=== PATIENT | female | born 1995 | race Caucasian/White ===

== ENCOUNTER 2017-04-04 17:22 | Emergency (ER) | payer OTHER ==
[~2017-04-04] VITALS: Ht 157.5 cm; Wt 65.2 kg
[2017-04-04 17:30] VITALS: Ht 157.5 cm; Wt 65.2 kg
[2017-04-04 18:04] LABS: URINE APPEARANCE CLEAR (CLEAR); URINE BILIRUBIN NEG (NEG); URINE COLOR DK YELLOW; URINE EPITHELIAL CELL AUTO >30 /lpf (0-5); URINE NITRITE NEG (NEG); URINE PH 5.5 (4.5-7.5); UROBILINOGEN NEG (NEG); ZZUR CULT IF INDIC CLEAN CATCH NO
--- NOTE | 2017-04-04 18:06 | EMERGENCY ROOM VISIT NOTE ---
History Report prepared by Cathy: Stan Alexis Under the Supervision of: Erin ChadwickO. First contact with patient: 17:32 Chief Complaint: PELVIC PAIN Stated Complaint: SEVERE ABDOMINAL/PELVIC PAIN, CRAMPING History of Present Illness The patient is a 22 year old female who presents to the Emergency Room with complaints of lower abdominal pain and pelvic pain starting yesterday morning after holding her urine in for too long. She states that yesterday she had to hold her urine in for a drug test for [employer]. She states that afterwards when she was able to urinate she has been having cramping abdominal pain, though she denies any burning with urination. The patient additionally is complaining of lower back pain. She states that her urine has been darker than normal. The patient additionally states that she is having some vaginal bleeding, however she is not due for her menstrual period. She states that there is no chance of since she has an IUD. She denies any recent intercourse, and she denies any gynecological problems in the past. She states that she occasionally has some spotting, however this is heavier than normal. The patient additionally states that she has been having chills recently and is a little nauseous. She notes that she has never had a UTI in the past. Pt denies headache , change in vision, fevers, chest pain, shortness of breath, vomiting, diarrhea , and melena. Source of History: patient Onset: yesterday Position: abdomen, pelvis Quality: cramping Timing: constant Associated Symptoms: + chills, + nausea Review of Systems See HPI for pertinent positives & negatives. A total of 10 systems reviewed and were otherwise negative. Past Medical & Surgical Social History Problems: (1) IUD (intrauterine device) in place Family History Patient reports no known family medical history. Social History Smoking Status: Never Smoker Housing Status: lives with roommate Occupation Status: [employer] student Current/Historical Medications Scheduled Ibuprofen Tab (Advil), 400-600 MG PO Q6H Allergies Coded Allergies: No Known Allergies (Unverified , 04/04/17) Physical Exam Vital Signs Date Time Temp Pulse Resp B/P (MAP) Pulse Ox O2 Delivery O2 Flow Rate FiO2 04/04/17 21:15 36.6 76 18 129/80 99 04/04/17 19:31 98 18 126/74 99 Room Air 04/04/17 17:30 36.6 91 20 124/78 100 Room Air Physical Exam GENERAL: alert, well appearing, well nourished, no distress, non-toxic EYE EXAM: normal conjunctiva, PERRL and EOM's grossly intact OROPHARYNX: no exudate, no erythema, lips, buccal mucosa, and tongue normal and mucous membranes are moist NECK: supple, no nuchal rigidity, no adenopathy, non-tender LUNGS: Clear to auscultation. Normal chest wall mechanics HEART: no murmurs, S1 normal and S2 normal ABDOMEN: Some suprapubic tenderness. Abdomen soft, normo-active bowel sounds, no masses, no rebound or guarding. BACK: Back is symmetrical on inspection and there is no deformity, no midline tenderness, no CVA tenderness. SKIN: no rashes and no bruising UPPER EXTREMITIES: upper extremities are grossly normal. LOWER EXTREMITIES: No pitting edema. NEURO EXAM: Normal sensorium, cranial nerves II-XII grossly intact, normal speech, no gross weakness of arms, no gross weakness of legs. Gross sensation intact. Medical Decision & Procedures ER Provider Diagnostic Interpretation: Radiology results have been interpreted by the radiologist and reviewed by me. (RENAL)RETROPERITON COMP HISTORY: Flank pain dysuria, back pain COMPARISON: None. FINDINGS: Right kidney: Maximum dimension 11.3 cm. No evidence for hydronephrosis Normal corticomedullary differentiation and cortical thickness. Left kidney: Maximum dimension 11.2 cm. No evidence for hydronephrosis. Normal corticomedullary differentiation and cortical thickness. Bladder: No bladder wall thickening. The bilateral ureteral jets were identified. IMPRESSION: Normal renal ultrasound. The above report was generated using voice recognition software. It may contain grammatical, syntax or spelling errors. Electronically signed by: Kai Escobedo M.D. 04/04/2017 8:33 PM Dictated Date/Time: 04/04/2017 8:33 PM TRANS VAG-FEMALE PELVIS HISTORY: Pain vag bleeding, pelvic pain COMPARISON: None. FINDINGS: Uterus: 8 cm Endometrial stripe: 4 mm. Intrauterine device in normal position within the uterus Right ovary: Maximum dimension 5 cm including a 4.6 cm partially ruptured right ovarian cyst. Left ovary: Maximum dimension 2.4 cm with normal vascular flow Miscellaneous:No pelvic free fluid. IMPRESSION: Partial rupture of a 4.6 cm right ovarian cyst, versus hemorrhagic cyst.. Intrauterine device in good position. Vascular flow is confirmed to both ovaries The above report was generated using voice recognition software. It may contain grammatical, syntax or spelling errors. Electronically signed by: Kai Escobedo M.D. 04/04/2017 8:35 PM Dictated Date/Time: 04/04/2017 8:34 PM Laboratory Results Test 04/04/17 17:42 Urine Color DK YELLOW Urine Appearance CLEAR (CLEAR) Urine pH 5.5 (4.5-7.5) Urine Specific [place] 1.030 (1.000-1.030) Urine Protein NEG (NEG) Urine Glucose (UA) NEG (NEG) Urine Ketones NEG (NEG) Urine Occult Blood 2+ (NEG) Urine Nitrite NEG (NEG) Urine Bilirubin NEG (NEG) Urine Urobilinogen NEG (NEG) Urine Leukocyte Esterase NEG (NEG) Urine WBC (Auto) 1-5 /hpf (0-5) Urine RBC (Auto) 0-4 /hpf (0-4) Urine Hyaline Casts (Auto) 5-10 /lpf (0-5) Urine Epithelial Cells (Auto) >30 /lpf (0-5) Urine Bacteria (Auto) NEG (NEG) Urine Test NEG (NEG) Laboratory results per my review. Medications Administered Medications (Trade) Dose Ordered Sig/Richelle Route Start Time Stop Time Status Last Admin Dose Admin Ibuprofen (Motrin Tab) 600 mg STK-MED ONCE .ROUTE 04/04/17 20:35 04/04/17 20:36 DC 04/04/17 20:38 600 MG ED Course 1753: The patient was evaluated in room C7. A complete history and physical exam was performed. 2034: Ibuprofen 600mg PO 2047: Upon reevaluation, the patient is feeling better. I discussed the findings and the treatment plan with the patient. She verbalizes agreement and understanding. She was discharged home. Medical Decision Differential diagnosis: Etiologies such as renal colic, appendicitis, diverticulitis, mesenteric ischemia, aortic pathology, infections, inflammatory bowel disease, PUD, biliary pathology, UTI, dysfunctional uterine bleeding, IUD dislodgement, , as well as others were entertained. Pt well appearing here despite complaints. No other risk factors for STDs, doubt PID, TOA. Symptoms likely from ruptured ovarian cyst. Doubt UTI given lack of other symptoms, sent for culture as a precaution. UA suboptimal specimen. Hematuria likely contaminant from vaginal bleeding. Doubt - related, doubt occult GI pathology. Discussed with patient symptoms to watch and return for, close follow-up with CIVIL RIGHTS REPRESENTATIVE, she verbalized understanding was agreeable with plan. Medication Reconcilliation Current Medication List: was personally reviewed by me Blood Pressure Screening Patient's blood pressure: Normal blood pressure Impression Primary Impression: Ovarian cyst Additional Impression: Pelvic pain Scribe Attestation The scribe's documentation has been prepared under my direction and personally reviewed by me in its entirety. I confirm that the note above accurately reflects all work, treatment, procedures, and medical decision making performed by me. Departure Information Dispostion Home / Self-Care Referrals No Doctor, Assigned (PCP) Forms HOME CARE DOCUMENTATION FORM, IMPORTANT VISIT INFORMATION, WORK / SCHOOL INSTRUCTIONS Patient Instructions Cyst Ovarian About, My [facility] [place] [employer] Additional Instructions Please follow up with CIVIL RIGHTS REPRESENTATIVE. Please refrain from intercourse until you're pain is resolved. You may use Tylenol and ibuprofen as needed for pain. Please drink plenty of water. If you have any worsening symptoms, develop vomiting, abnormal vaginal discharge, diarrhea, blood in your urine, fevers, vomiting, or you've any other new concerns, please return the emergency room. Problem Qualifiers Primary Impression: Ovarian cyst Laterality: unspecified laterality Qualified Codes: N83.209 - Unspecified ovarian cyst, unspecified side
[2017-04-04 18:08] LABS: MANUAL MICROSCOPIC REQUIRED? NO; REVIEW REQ? YES
[2017-04-04] MEDS ORDERED: IBUP-103 PO (18:31)
--- NOTE | 2017-04-04 20:34 | DIAGNOSTIC IMAGING REPORT ---
(RENAL)RETROPERITON COMP HISTORY: Flank pain dysuria, back pain COMPARISON: None. FINDINGS: Right kidney: Maximum dimension 11.3 cm. No evidence for hydronephrosis Normal corticomedullary differentiation and cortical thickness. Left kidney: Maximum dimension 11.2 cm. No evidence for hydronephrosis. Normal corticomedullary differentiation and cortical thickness. Bladder: No bladder wall thickening. The bilateral ureteral jets were identified. IMPRESSION: Normal renal ultrasound. The above report was generated using voice recognition software. It may contain grammatical, syntax or spelling errors. Electronically signed by: Kai Escobedo M.D. 04/04/2017 8:33 PM Dictated Date/Time: 04/04/2017 8:33 PM
[2017-04-04] MEDS ORDERED: IBUPROFEN 600 MG TAB ONE (20:35)
--- NOTE | 2017-04-04 20:37 | DIAGNOSTIC IMAGING REPORT ---
TRANS VAG-FEMALE PELVIS HISTORY: Pain vag bleeding, pelvic pain COMPARISON: None. FINDINGS: Uterus: 8 cm Endometrial stripe: 4 mm. Intrauterine device in normal position within the uterus Right ovary: Maximum dimension 5 cm including a 4.6 cm partially ruptured right ovarian cyst. Left ovary: Maximum dimension 2.4 cm with normal vascular flow Miscellaneous:No pelvic free fluid. IMPRESSION: Partial rupture of a 4.6 cm right ovarian cyst, versus hemorrhagic cyst.. Intrauterine device in good position. Vascular flow is confirmed to both ovaries The above report was generated using voice recognition software. It may contain grammatical, syntax or spelling errors. Electronically signed by: Kai Escobedo M.D. 04/04/2017 8:35 PM Dictated Date/Time: 04/04/2017 8:34 PM
[2017-04-04 21:15] VITALS: BP 129/80; PULSE 76; TEMP 36.6; O2SAT 99
== END 2017-04-04 21:16 | disposition home or self-care (01) ==
LOC: C.EDB 17:24 → C.EDC 21:16
DX: N83.291 Other ovarian cyst, right side (principal); R10.2 Pelvic and perineal pain; Z97.5 Presence of (intrauterine) contraceptive device

== ENCOUNTER 2017-07-06 18:36 | Emergency (ER) | payer OTHER ==
[~2017-07-06] VITALS: Ht 157.5 cm; Wt 65.7 kg
[~2017-07-06 18:36] MED LIST: IBUP-103 PO
[2017-07-06 18:45] VITALS: TEMP 36.7; Ht 157.5 cm; Wt 65.7 kg
[2017-07-06] MEDS ORDERED: ONDANSETRON HOME PACK 4MG OD TAB PO ONE (20:00)
[2017-07-06 20:14] VITALS: BP 116/70; PULSE 90; O2SAT 98
--- NOTE | 2017-07-07 00:25 | EMERGENCY ROOM VISIT NOTE ---
History Report prepared by Kevenibtobin: Marti Hartley Under the Supervision of: Dr. Kamar Polanco M.D. First contact with patient: 19:45 Chief Complaint: FLU LIKE SX Stated Complaint: VOMITING,FLU LIKE SYMPTOMS History of Present Illness The patient is a 22 year old female who presents to the Emergency Room with complaints of persistent flu-like symptoms since July 02, 2017. She notes body aches, vomiting, and sweating. She currently rates her discomfort a 5/10 in severity. She states that she vomited on Friday, though it went away until she went to do push-ups and sit-ups for [employer] training and she vomited again. She notes that she feels feverish, though has not recorded her temperature. She has taken Ibuprofen. She reports coughs and congestion. She denies any chest pain or abdominal pain. She denies any problems urinating. Source of History: patient Onset: July 02, 2017 Position: other (global ) Symptom Intensity: 5/10 Quality: other (flu-like symptoms) Timing: other (persistent) Associated Symptoms: + cough, + vomiting, No chest pain, No abdominal pain, No urinary symptoms Note: She notes congestion, body aches, sweating, and feverish. Review of Systems See HPI for pertinent positives & negatives. A total of 10 systems reviewed and were otherwise negative. Past Medical & Surgical Social History Problems: (1) IUD (intrauterine device) in place Family History Patient reports no known family medical history. Social History Smoking Status: Never Smoker Marital Status: single Housing Status: lives with roommate Occupation Status: [employer] student Current/Historical Medications Unable to Obtain Active Prescriptions or Reported Meds Allergies Coded Allergies: No Known Allergies (Unverified , 04/04/17) Physical Exam Vital Signs Date Time Temp Pulse Resp B/P (MAP) Pulse Ox O2 Delivery O2 Flow Rate FiO2 07/06/17 20:14 90 116/70 98 07/06/17 18:45 36.7 90 18 109/74 99 Room Air Physical Exam Constitutional: Vital signs reviewed. Eyes: Pupils are equal round reactive to light. Conjunctiva are noninjected. ENT: Pharynx is clear without erythema or exudate. Mucous membranes are moist. Neck supple without meningeal signs. Respiratory: Clear to auscultation bilaterally. Breath sounds are equal bilaterally. Cardiovascular: Regular rate and rhythm. No rubs or gallops. GI: Soft, nondistended and nontender. Bowel sounds are present. Musculoskeletal: No peripheral edema. No lower extremity tenderness. Integumentary: No cyanosis. Neurological: The patient is awake and alert. No focal deficits. Psychiatric: Normal affect. Medical Decision & Procedures Medications Administered Medications (Trade) Dose Ordered Sig/Richelle Route Start Time Stop Time Status Last Admin Dose Admin Ondansetron HCl (ZOFRAN ODT 4MG Home Pack) 1 homepack UD ONCE PO 07/06/17 20:00 07/06/17 20:01 DC 07/06/17 20:04 1 HOMEPACK ED Course 194: The patient was evaluated in room B5. A complete history and physical exam was performed. I discussed the results and treatment plan with the patient. I answered all pertaining questions that she had. She expressed understanding and verbalized agreement. The patient will be discharged home. 2000: Ordered Zofran 1 homepack PO Medical Decision This is a 22-year-old female presents with flulike symptoms. I did perform a limited focused review of portions of the patient's old chart on the electronic medical record. The patient has had no recent pertinent visits to this hospital. I did evaluate the patient as noted above. She does have classic influenza symptoms. She states her main reason for coming in was because she has a physical fitness test tomorrow for [employer] and did not feel she would be able to complete it. She declined testing for influenza. I did order a Zofran home pack should she have any nausea again. She will continue [id number] remedies and fluids at home and follow up with [facility]. She was given a note for ROTC. Medication Reconcilliation Current Medication List: was personally reviewed by me Blood Pressure Screening Patient's blood pressure: Normal blood pressure Impression Primary Impression: Influenza Scribe Attestation The scribe's documentation has been prepared under my direct and personally reviewed by me in its entirety. I confirm that the note above accurately reflects all work, treatment, procedures, and medical decision making performed by me. Departure Information Dispostion Home / Self-Care Prescriptions Unable to Obtain Active Prescriptions or Reported Meds Referrals No Doctor, Assigned (PCP) Forms HOME CARE DOCUMENTATION FORM, IMPORTANT VISIT INFORMATION, School Instructions Patient Instructions ED Flu, My [facility] Additional Instructions You have been examined and treated today on an emergency basis only. This is not a substitute for, or an effort to provide, complete comprehensive medical care. It is impossible to recognize and treat all injuries or illnesses in a single emergency department visit. It is therefore important that you follow up closely with your physician. Call as soon as possible for an appointment. Return for worsening symptoms or if you develop chest pain, shortness of breath , abdominal pain or any other concerning symptoms.
== END 2017-07-06 20:16 | disposition home or self-care (01) ==
LOC: C.EDB 18:36
DX: J11.1 Influenza due to unidentified influenza virus with other respiratory manifestations (principal); Z97.5 Presence of (intrauterine) contraceptive device